=== PATIENT | male | born 1970 | race Native Hawaiian/Other Pacific Islander ===

== ENCOUNTER 2023-02-25 19:03 | Emergency (ER) | payer SELFPAY ==
[~2023-02-25] VITALS: Ht 172.7 cm; Wt 81.6 kg
[2023-02-25] MEDS ORDERED: EPINEPHrine 0.1 MG/ML 10 ML (HOSPIRA) SYR IJ ONE (19:07)
[2023-02-25] MEDS ORDERED: AMIODARONE 150 MG/3 ML (CORDARONE) VIAL IV ONE (19:07)
--- NOTE | 2023-02-25 19:53 | ED CPR ---
HPI-CPR General Chief Complaint: Code Blue Stated Complaint: CODE BLUE,CHEST PAIN 2+WEEKS Source of Information: EMS, Family Exam Limitations: Other (CPR in progress on arrival) History of Present Illness Date Seen by Provider: February 25, 2023 Time Seen by Provider: 19:04 Initial Comments 52-year-old male with no pertinent past medical history per elaine coming in with cardiac arrest. The patient was agonal he breathing, leaned back, family called 911. He had no pulse on arrival from EMS around 6:20 PM roughly. CPR was started at that time with unknown downtime. He had 3 rounds of epinephrine and was in PEA arrest. He was intubated without incident. Further elements of the history and physical were unable to be obtained other than he had chest pain just prior to the incident. Allergies and Home Medications Allergies Coded Allergies: No Allergy Information Available (Unverified , 02/25/23) Patient Home Medication List Home Medication List Reviewed: Yes Review of Systems Review of Systems Constitutional: no symptoms reported Cardiovascular: Chest Pain Physical Exam Vital Signs Capillary Refill : Height, Weight, BMI Height: '" Weight: lbs. oz. kg; BMI Method: General Appearance: Other (CPR in progress, unresponsive) HEENT: Other (Intubated) Respiratory: Other (Intubated with mechanical breath sounds bilaterally) Cardiovascular: Other (No pulse) Neurologic/Psychiatric: Other (Unresponsive) Procedures/Interventions Patient came in with CPR in progress. ET tube was confirmed with bilateral br eath sounds by myself. Initial pulse check showed V. tach. The patient was appropriately shocked. He was given 300 mg of amiodarone followed by 150 mg of any amiodarone after a few minutes. On repeat pulse check, V-fib, was shocked again. Repeat pulse check from then on was PEA arrest. At this point the patient had almost 60 minutes of downtime with CPR with unknown how long he was down prior to that. His pupils were fixed and dilated, ultrasound was performed and he had no cardiac activity at all. At this time we called his time of at 19:17. Elaine was at bedside during this Progress/Results/Core Measures Progress Progress Note : Progress Note 52-year-old male presenting due to cardiac arrest. Please see the procedure note regarding CPR. Patient had prolonged downtime for over an hour almost with CPR. Further attempts were deemed futile at that point given he had no cardiac activity on ultrasound. Departure Impression Primary Impression: Cardiac arrest Disposition: 20 Condition: PAUL LAYTON MD February 25, 2023 19:53
== END 2023-02-25 22:10 | disposition expired ==
LOC: ER FS 19:06
DX: I46.9 Cardiac arrest, cause unspecified (principal)
CPT/HCPCS: 99291